=== PATIENT | male | born 1945 | race Caucasian/White ===

== ENCOUNTER 2022-03-02 19:39 | Observation (INO) ==
[2022-03-02] MEDS ORDERED: SODIUM CHLORIDE 0.9% 1,000 ML IV STA (20:01)
[2022-03-02 20:56] LABS: INR 1.4; PT Patient Result 15.6 SECS (10.5-12.0)
[2022-03-02 21:01] LABS: Alanine Aminotransferase 122 U/L (16-61); Albumin 1.8 G/DL (3.4-5.0); Alkaline Phosphatase 752 U/L (45-117); Aspartate Amino Transferase 95 U/L (0-37); Blood Urea Nitrogen 14 MG/DL (7-18); Calcium 8.2 MG/DL (8.5-10.1); Carbon Dioxide 27 MMOL/L (21-32); Chloride 102 MMOL/L (98-107); Glucose 221 MG/DL (74-106); Potassium 3.8 MMOL/L (3.5-5.1); Sodium 136 MMOL/L (136-145); Total Protein 5.3 G/DL (6.4-8.2)
[2022-03-02 21:13] LABS: Lactic Acid 2.7 MMOL/L (0.4-2.0)
[2022-03-02 21:32] LABS: Glucose,Urine (UA) 100 mg/dL (Negative); Protein,Urine 30 mg/dL (Negative); Urine Appearance Clear (Clear); Urine Color Yellow (Yellow); Urine pH 5.5 (4.5-8.0)
[2022-03-02 21:32] LABS: Ammonia < 10 UMOL/L (11-32)
[2022-03-02 21:33] LABS: Bilirubin,Urine Large mg/dL (Negative); Blood, Urine Trace mg/dL (Negative); Ketones,Urine Negative (Negative); Nitrite,Urine Negative (Negative); Urine Urobilinogen 0.2 eU/dL (<2.0)
[2022-03-02 21:35] LABS: Mucus,Urine Occasional /LPF (Occasional); RBC,Urine 7 /HPF (0-4)
[2022-03-02 22:13] LABS: Basophils % 0.1 % (0.0-0.8); Eosinophils # 0.2 10*3/uL (0.0-0.87); Eosinophils % 2.3 % (0.00-10.9); Hematocrit 29.9 VOL% (42.0-52.0); Hemoglobin 9.8 GM/DL (14.0-18.0); Immature Granulocytes Absolute 0.09 #; Lymphocytes # 0.2 10*3/uL (1.4-4.0); Lymphocytes % 2.4 % (21.2-54.2); Mean Corpuscular HGB Conc 32.8 GM/DL (32-36); Mean Corpuscular Volume 92.3 FL (87-102); Mean Platelet Volume 11.5 FL (9.6-12.0); Monocytes # 0.2 10*3/uL (0.11-0.8); Monocytes % 1.9 % (1.7-12.7); NRBC # 0.02 10*3/uL; Neutrophils % 92.3 % (38.7-73.9); Platelet Count 203 T/CUMM (130-400); Red Blood Count 3.24 MC/CUMM (3.8-5.5); Red Cell Distribution Width 15.7 % (9.3-17.3); White Blood Count 8.7 T/CUMM (4-12)
[2022-03-02 22:21] LABS: Band Neutrophils 1 % (0-10); Eosinophils 2 % (0-10); Lymphocytes 5 % (20-55); Total Cells Counted 100
[2022-03-02 22:22] LABS: Platelet Estimate Adequate
[2022-03-02] MEDS ORDERED: SODIUM CHLORIDE 0.9% 2,000 ML IV STA (22:27)
[2022-03-02] MEDS ORDERED: PIPERACILLIN/TAZOBACTAM 3,375 MG in SODIUM CHLORIDE 0.9% 100 ML IV STA (22:28)
[2022-03-02] MEDS ORDERED: ONDANSETRON 4 MG/2 ML VIAL IV PRN (22:31)
[2022-03-03] MEDS: SODIUM CHLORIDE 0.9% 1,000 ML IV SCH ×3 (01:44→14:39)
[2022-03-03 05:31] LABS: Basophils % 0.1 % (0.0-0.8); Eosinophils # 0.1 10*3/uL (0.0-0.87); Eosinophils % 0.8 % (0.00-10.9); Hematocrit 27.7 VOL% (42.0-52.0); Hemoglobin 9.1 GM/DL (14.0-18.0); Immature Granulocytes % 0.8 %; Immature Granulocytes Absolute 0.14 #; Lymphocytes # 0.5 10*3/uL (1.4-4.0); Lymphocytes % 2.9 % (21.2-54.2); Mean Corpuscular HGB Conc 32.9 GM/DL (32-36); Mean Platelet Volume 10.8 FL (9.6-12.0); Monocytes # 0.6 10*3/uL (0.11-0.8); Monocytes % 3.6 % (1.7-12.7); Neutrophils % 91.8 % (38.7-73.9); Platelet Count 226 T/CUMM (130-400); Red Blood Count 2.98 MC/CUMM (3.8-5.5); Red Cell Distribution Width 15.9 % (9.3-17.3); White Blood Count 17.3 T/CUMM (4-12)
[2022-03-03 05:44] LABS: Albumin 1.6 G/DL (3.4-5.0); Bilirubin,Total 4.9 MG/DL (0.20-1.00); Calcium 7.7 MG/DL (8.5-10.1); Osmolality,Calculated 284.5 MOS/KG (273-304); Potassium 3.6 MMOL/L (3.5-5.1); Total Protein 4.8 G/DL (6.4-8.2)
[2022-03-03 06:25] LABS: Band Neutrophils 5 % (0-10); Hypochromia Slight; Lymphocytes 3 % (20-55); Total Cells Counted 100
[2022-03-03 06:26] LABS: Microcytosis Slight; Ovalocytes Slight; Platelet Estimate Normal
[2022-03-03] MEDS ORDERED: MAGNESIUM SULF RIDER 4 GM/100 ML PREMIX IV ONE (08:30)
[2022-03-03] MEDS: RIVAROXABAN 15 MG TABLET PO SCH ×2 (10:52→16:57)
[2022-03-03] MEDS: PANTOPRAZOLE 40 MG TABLET PO SCH (10:52)
[2022-03-03] MEDS: PIPERACILLIN/TAZOBACTAM 3,375 MG in SODIUM CHLORIDE 0.9% 100 ML IV SCH ×2 (10:53→17:22)
[2022-03-03] MEDS: ACETAMINOPHEN 325 MG TABLET PO PRN ×2 (14:43→22:46)
[2022-03-04] MEDS: SODIUM CHLORIDE 0.9% 1,000 ML IV SCH ×2 (01:30→14:06)
[2022-03-04] MEDS: PIPERACILLIN/TAZOBACTAM 3,375 MG in SODIUM CHLORIDE 0.9% 100 ML IV SCH ×3 (01:36→17:07)
[2022-03-04 06:04] LABS: Basophils % 0.1 % (0.0-0.8); Eosinophils # 0.2 10*3/uL (0.0-0.87); Eosinophils % 0.9 % (0.00-10.9); Hematocrit 25.9 VOL% (42.0-52.0); Hemoglobin 8.6 GM/DL (14.0-18.0); Immature Granulocytes % 1.5 %; Immature Granulocytes Absolute 0.26 #; Lymphocytes # 0.5 10*3/uL (1.4-4.0); Lymphocytes % 2.9 % (21.2-54.2); Mean Corpuscular HGB Conc 33.2 GM/DL (32-36); Mean Corpuscular Volume 92.2 FL (87-102); Mean Platelet Volume 11.5 FL (9.6-12.0); Monocytes % 5.7 % (1.7-12.7); NRBC # 0.02 10*3/uL; Neutrophils % 88.9 % (38.7-73.9); Platelet Count 292 T/CUMM (130-400); Red Blood Count 2.81 MC/CUMM (3.8-5.5); Red Cell Distribution Width 16.4 % (9.3-17.3)
[2022-03-04 06:18] LABS: Calcium 7.9 MG/DL (8.5-10.1); Osmolality,Calculated 279.7 MOS/KG (273-304); Potassium 3.3 MMOL/L (3.5-5.1)
[2022-03-04 06:32] LABS: Anisocytosis 1+; Band Neutrophils 20 % (0-10); Giant Platelets Few; Lymphocytes 3 % (20-55); Macrocytosis 1+; Platelet Estimate Normal; Tear Drop Cells Few; Total Cells Counted 100
[2022-03-04] MEDS: PANTOPRAZOLE 40 MG TABLET PO SCH (09:15)
[2022-03-04] MEDS: RIVAROXABAN 15 MG TABLET PO SCH ×2 (09:15→16:47)
[2022-03-04 10:54] VITALS: BP 122/55
[2022-03-04] MEDS: ACETAMINOPHEN 325 MG TABLET PO PRN (16:47)
== END 2022-03-04 17:14 | disposition home or self-care (01) ==
LOC: EDUNIT# → EDBD → N.ED 19:39 → N.TELES 19:39
PROVIDERS: ADMIT Internal Medicine; ATTEND Internal Medicine

== ENCOUNTER 2022-03-17 14:21 | Inpatient (IN) ==
[2022-03-17] MEDS ORDERED: SODIUM CHLORIDE 0.9% 1,000 ML IV STA ×2 (14:55→16:19)
[2022-03-17] MEDS ORDERED: HYDROmorphone 1 MG/1 ML SYRINGE IV STA (14:55)
[2022-03-17] MEDS ORDERED: ONDANSETRON 4 MG/2 ML VIAL IV STA (14:55)
[2022-03-17 15:53] LABS: Eosinophils % 0.7 % (0.00-10.9); Hematocrit 21.8 VOL% (42.0-52.0); Hemoglobin 6.9 GM/DL (14.0-18.0); Immature Granulocytes Absolute 0.06 #; Lymphocytes # 0.6 10*3/uL (1.4-4.0); Lymphocytes % 18.6 % (21.2-54.2); Mean Corpuscular HGB Conc 31.7 GM/DL (32-36); Mean Corpuscular Volume 95.6 FL (87-102); Mean Platelet Volume 11.3 FL (9.6-12.0); Monocytes # 0.4 10*3/uL (0.11-0.8); Monocytes % 12.8 % (1.7-12.7); NRBC # 0.05 10*3/uL; Neutrophils % 65.9 % (38.7-73.9); Platelet Count 203 T/CUMM (130-400); Red Blood Count 2.28 MC/CUMM (3.8-5.5); Red Cell Distribution Width 17.5 % (9.3-17.3)
[2022-03-17] MEDS ORDERED: PIPERACILLIN/TAZOBACTAM 3,375 MG in SODIUM CHLORIDE 0.9% 100 ML IV STA (16:02)
[2022-03-17 16:17] LABS: Band Neutrophils 10 % (0-10); Lymphocytes 14 % (20-55); Nucleated Red Blood Cells 2 (0-5); Total Cells Counted 100
[2022-03-17 16:18] LABS: Platelet Estimate Adequate
[2022-03-17] MEDS ORDERED: VANCOMYCIN INJ 1,250 MG in SODIUM CHLORIDE 0.9% 250 ML IV STA (16:24)
[2022-03-17 16:27] LABS: Alanine Aminotransferase 57 U/L (16-61); Albumin 1.6 G/DL (3.4-5.0); Alkaline Phosphatase 324 U/L (45-117); Aspartate Amino Transferase 38 U/L (0-37); Blood Urea Nitrogen 20 MG/DL (7-18); Calcium 7.9 MG/DL (8.5-10.1); Carbon Dioxide 25 MMOL/L (21-32); Chloride 102 MMOL/L (98-107); Glucose 161 MG/DL (74-106); Osmolality,Calculated 271.4 MOS/KG (273-304); Potassium 4.8 MMOL/L (3.5-5.1); Sodium 133 MMOL/L (136-145); Total Protein 5.3 G/DL (6.4-8.2)
[2022-03-17] MEDS ORDERED: SODIUM CHLORIDE 0.9% 1,000 ML IV PRN (16:42)
[2022-03-17] MEDS ORDERED: GLUCAGON 1 MG VIAL IM PRN (16:42)
[2022-03-17] MEDS ORDERED: DEXTROSE 10% 250 ML BAG IV PRN (16:48)
[2022-03-17] MEDS: SODIUM CHLORIDE 0.9% 1,000 ML IV SCH (18:14)
[2022-03-17 20:05] LABS: Bacteria,Urine Occasional /HPF (Few); Mucus,Urine Occasional /LPF (Occasional); RBC,Urine 2 /HPF (0-4)
[2022-03-17 20:08] LABS: Urine Appearance Clear (Clear); Urine Color Yellow (Yellow); Urine pH 5.5 (4.5-8.0)
[2022-03-17 20:11] LABS: Glucose,Urine (UA) Negative (Negative); Ketones,Urine Negative (Negative); Nitrite,Urine Negative (Negative); Protein,Urine 30 mg/dL (Negative)
[2022-03-17 20:12] LABS: Bilirubin,Urine Negative (Negative); Blood, Urine Small mg/dL (Negative); Urine Urobilinogen 0.2 eU/dL (<2.0)
[2022-03-17 20:14] LABS: Urine Specific Gravity <= 1.005 (1.001-1.035)
[2022-03-17] MEDS: HYDROmorphone 1 MG/1 ML SYRINGE IV PRN (20:40)
[2022-03-17] MEDS: DOCUSATE SODIUM 100 MG CAPSULE PO SCH (20:50)
[2022-03-17] MEDS ORDERED: VANCOMYCIN INJ 1,250 MG in SODIUM CHLORIDE 0.9% 250 ML IV SCH (22:30)
[2022-03-18] MEDS: VANCOMYCIN INJ 1,500 MG in SODIUM CHLORIDE 0.9% 500 ML IV SCH ×2 (05:15→16:33)
[2022-03-18 07:01] LABS: Basophils % 0.5 % (0.0-0.8); Eosinophils # 0.1 10*3/uL (0.0-0.87); Eosinophils % 2.8 % (0.00-10.9); Hematocrit 29.6 VOL% (42.0-52.0); Hemoglobin 9.3 GM/DL (14.0-18.0); Immature Granulocytes % 1.6 %; Immature Granulocytes Absolute 0.07 #; Lymphocytes # 0.7 10*3/uL (1.4-4.0); Lymphocytes % 16.3 % (21.2-54.2); Mean Corpuscular HGB Conc 31.4 GM/DL (32-36); Mean Corpuscular Volume 93.7 FL (87-102); Mean Platelet Volume 10.5 FL (9.6-12.0); Monocytes # 0.7 10*3/uL (0.11-0.8); Monocytes % 15.6 % (1.7-12.7); NRBC # 0.03 10*3/uL; Neutrophils % 63.2 % (38.7-73.9); Platelet Count 190 T/CUMM (130-400); Red Blood Count 3.16 MC/CUMM (3.8-5.5); Red Cell Distribution Width 17.2 % (9.3-17.3); White Blood Count 4.3 T/CUMM (4-12)
[2022-03-18 07:23] LABS: Albumin 1.5 G/DL (3.4-5.0); Bilirubin,Total 1.4 MG/DL (0.20-1.00); Calcium 7.7 MG/DL (8.5-10.1); Osmolality,Calculated 274.1 MOS/KG (273-304); Potassium 4.4 MMOL/L (3.5-5.1)
[2022-03-18] MEDS ORDERED: predniSONE 20 MG TABLET PO PRN (08:09)
[2022-03-18 08:12] LABS: Band Neutrophils 6 % (0-10); Lymphocytes 14 % (20-55); Nucleated Red Blood Cells 1 (0-5); Total Cells Counted 100
[2022-03-18 08:14] LABS: Tear Drop Cells Few
[2022-03-18 08:15] LABS: Ovalocytes Few; Platelet Estimate Adequate
[2022-03-18] MEDS: PANTOPRAZOLE 40 MG TABLET PO SCH (08:55)
[2022-03-18] MEDS: POTASSIUM CHLORIDE 20 MEQ TABLET PO SCH (09:03)
[2022-03-18] MEDS: HYDROmorphone 1 MG/1 ML SYRINGE IV PRN ×3 (09:05→23:17)
[2022-03-18] MEDS: PIPERACILLIN/TAZOBACTAM 3,375 MG in SODIUM CHLORIDE 0.9% 100 ML IV SCH ×2 (09:09→20:18)
[2022-03-18] MEDS: DOCUSATE SODIUM 100 MG CAPSULE PO SCH ×2 (09:37→20:56)
[2022-03-18] MEDS: SODIUM CHLORIDE 0.9% 1,000 ML IV SCH ×2 (13:07→18:36)
[2022-03-18] MEDS ORDERED: methylPREDNISolone SOD SUC 125 MG/2 ML VIAL IV SCH (13:30)
[2022-03-18] MEDS: ONDANSETRON 4 MG/2 ML VIAL IV PRN (16:33)
[2022-03-18] MEDS: RIVAROXABAN 15 MG TABLET PO SCH (17:19)
[2022-03-18] MEDS: ALBUTEROL 2.5 MG/3 ML NEB RESP TX PRN (18:58)
[2022-03-18] MEDS: INSULIN LISPRO 100 UNIT/ML SUBCUT SCH (21:42)
[2022-03-19] MEDS: SODIUM CHLORIDE 0.9% 1,000 ML IV SCH (02:11)
[2022-03-19] MEDS: PIPERACILLIN/TAZOBACTAM 3,375 MG in SODIUM CHLORIDE 0.9% 100 ML IV SCH ×2 (03:57→12:54)
[2022-03-19] MEDS: ALBUTEROL 2.5 MG/3 ML NEB RESP TX PRN ×2 (04:16→15:15)
[2022-03-19 05:52] LABS: Basophils % 0.5 % (0.0-0.8); Eosinophils # 0.2 10*3/uL (0.0-0.87); Eosinophils % 2.3 % (0.00-10.9); Hematocrit 28.9 VOL% (42.0-52.0); Hemoglobin 9.2 GM/DL (14.0-18.0); Immature Granulocytes % 4.3 %; Immature Granulocytes Absolute 0.28 #; Lymphocytes # 0.8 10*3/uL (1.4-4.0); Lymphocytes % 11.8 % (21.2-54.2); Mean Corpuscular HGB Conc 31.8 GM/DL (32-36); Mean Corpuscular Volume 94.8 FL (87-102); Mean Platelet Volume 10.8 FL (9.6-12.0); NRBC # 0.03 10*3/uL; Neutrophils % 66.1 % (38.7-73.9); Platelet Count 234 T/CUMM (130-400); Red Blood Count 3.05 MC/CUMM (3.8-5.5); Red Cell Distribution Width 17.2 % (9.3-17.3); White Blood Count 6.5 T/CUMM (4-12)
[2022-03-19 07:47] LABS: Band Neutrophils 1 % (0-10); Eosinophils 4 % (0-10); Lymphocytes 12 % (20-55); Metamyelocytes 1 %; Total Cells Counted 100
[2022-03-19 07:50] LABS: Anisocytosis Slight
[2022-03-19 07:51] LABS: Platelet Estimate Normal
[2022-03-19] MEDS: PANTOPRAZOLE 40 MG TABLET PO SCH (09:09)
[2022-03-19] MEDS: POTASSIUM CHLORIDE 20 MEQ TABLET PO SCH (09:09)
[2022-03-19] MEDS: RIVAROXABAN 15 MG TABLET PO SCH ×2 (09:10→17:32)
[2022-03-19] MEDS: INSULIN LISPRO 100 UNIT/ML SUBCUT SCH ×4 (09:11→20:31)
[2022-03-19] MEDS: HYDROmorphone 1 MG/1 ML SYRINGE IV PRN ×3 (09:12→21:12)
[2022-03-19] MEDS: DOCUSATE SODIUM 100 MG CAPSULE PO SCH ×2 (09:13→21:13)
[2022-03-19] MEDS: SODIUM CHLORIDE 0.45% 1,000 ML IV SCH (09:26)
[2022-03-19] MEDS ORDERED: FUROSEMIDE 20 MG/2 ML VIAL IV ONE (12:48)
[2022-03-19] MEDS: VANCOMYCIN INJ 1,500 MG in SODIUM CHLORIDE 0.9% 500 ML IV SCH ×3 (17:32→18:03)
[2022-03-20] MEDS: ALBUTEROL 2.5 MG/3 ML NEB RESP TX PRN (00:55)
[2022-03-20 05:15] LABS: Basophils % 0.2 % (0.0-0.8); Eosinophils # 0.2 10*3/uL (0.0-0.87); Eosinophils % 2.2 % (0.00-10.9); Hematocrit 28.5 VOL% (42.0-52.0); Immature Granulocytes Absolute 0.39 #; Lymphocytes # 0.8 10*3/uL (1.4-4.0); Lymphocytes % 8.2 % (21.2-54.2); Mean Corpuscular HGB Conc 31.6 GM/DL (32-36); Mean Corpuscular Volume 93.8 FL (87-102); Mean Platelet Volume 10.7 FL (9.6-12.0); Monocytes # 1.4 10*3/uL (0.11-0.8); Monocytes % 14.6 % (1.7-12.7); NRBC # 0.02 10*3/uL; Neutrophils % 70.8 % (38.7-73.9); Platelet Count 257 T/CUMM (130-400); Red Blood Count 3.04 MC/CUMM (3.8-5.5); Red Cell Distribution Width 17.1 % (9.3-17.3); White Blood Count 9.8 T/CUMM (4-12)
[2022-03-20 05:36] LABS: Eosinophils 5 % (0-10); Lymphocytes 5 % (20-55); Platelet Estimate Adequate; Total Cells Counted 100
[2022-03-20 05:39] LABS: Albumin 1.3 G/DL (3.4-5.0); Bilirubin,Total 1.2 MG/DL (0.20-1.00); Calcium 7.7 MG/DL (8.5-10.1); Potassium 3.8 MMOL/L (3.5-5.1); Total Protein 5.1 G/DL (6.4-8.2)
[2022-03-20] MEDS ORDERED: DEXTROMETHORPHAN ER 6 MG/ML 90 ML/BOTTLE PO PRN (08:14)
[2022-03-20] MEDS: POTASSIUM CHLORIDE 20 MEQ TABLET PO SCH (09:11)
[2022-03-20] MEDS: RIVAROXABAN 15 MG TABLET PO SCH ×2 (09:11→17:44)
[2022-03-20] MEDS: DOCUSATE SODIUM 100 MG CAPSULE PO SCH ×2 (09:11→21:01)
[2022-03-20] MEDS: PANTOPRAZOLE 40 MG TABLET PO SCH (09:11)
[2022-03-20] MEDS: SODIUM CHLORIDE 0.45% 1,000 ML IV SCH (09:12)
[2022-03-20] MEDS: PIPERACILLIN/TAZOBACTAM 3,375 MG in SODIUM CHLORIDE 0.9% 100 ML IV SCH ×2 (09:17→17:43)
[2022-03-20] MEDS: INSULIN LISPRO 100 UNIT/ML SUBCUT SCH ×4 (11:19→21:02)
[2022-03-20] MEDS: ONDANSETRON 4 MG/2 ML VIAL IV PRN ×2 (11:40→20:54)
[2022-03-20] MEDS ORDERED: VANCOMYCIN INJ 1,500 MG in SODIUM CHLORIDE 0.9% 500 ML IV SCH (17:00)
[2022-03-20] MEDS: VANCOMYCIN INJ 1,500 MG in SODIUM CHLORIDE 0.9% 500 ML IV SCH (17:45)
[2022-03-21] MEDS: PIPERACILLIN/TAZOBACTAM 3,375 MG in SODIUM CHLORIDE 0.9% 100 ML IV SCH ×4 (00:09→23:32)
[2022-03-21] MEDS: ONDANSETRON 4 MG/2 ML VIAL IV PRN ×4 (02:38→22:35)
[2022-03-21] MEDS: SODIUM CHLORIDE 0.45% 1,000 ML IV SCH ×2 (03:27→20:39)
[2022-03-21 05:43] LABS: Basophils % 0.3 % (0.0-0.8); Eosinophils # 0.5 10*3/uL (0.0-0.87); Eosinophils % 3.7 % (0.00-10.9); Hematocrit 29.8 VOL% (42.0-52.0); Hemoglobin 9.2 GM/DL (14.0-18.0); Immature Granulocytes % 5.4 %; Immature Granulocytes Absolute 0.75 #; Lymphocytes # 0.8 10*3/uL (1.4-4.0); Lymphocytes % 5.8 % (21.2-54.2); Mean Corpuscular HGB Conc 30.9 GM/DL (32-36); Mean Corpuscular Volume 96.4 FL (87-102); Mean Platelet Volume 10.8 FL (9.6-12.0); Monocytes # 2.2 10*3/uL (0.11-0.8); Monocytes % 15.5 % (1.7-12.7); Neutrophils % 69.3 % (38.7-73.9); Platelet Count 277 T/CUMM (130-400); Red Blood Count 3.09 MC/CUMM (3.8-5.5); Red Cell Distribution Width 17.1 % (9.3-17.3)
[2022-03-21 05:49] LABS: Albumin 1.3 G/DL (3.4-5.0); Calcium 7.5 MG/DL (8.5-10.1); Osmolality,Calculated 271.1 MOS/KG (273-304); Potassium 3.9 MMOL/L (3.5-5.1); Total Protein 5.3 G/DL (6.4-8.2)
[2022-03-21 06:04] LABS: Band Neutrophils 4 % (0-10); Eosinophils 7 % (0-10); Hypochromia 1+; Lymphocytes 6 % (20-55); Total Cells Counted 100
[2022-03-21 06:05] LABS: Anisocytosis 1+; Macrocytosis 1+; Platelet Estimate Normal
[2022-03-21] MEDS: RIVAROXABAN 15 MG TABLET PO SCH ×2 (08:50→17:24)
[2022-03-21] MEDS: INSULIN LISPRO 100 UNIT/ML SUBCUT SCH ×4 (08:58→20:37)
[2022-03-21] MEDS: POTASSIUM CHLORIDE 20 MEQ TABLET PO SCH (13:01)
[2022-03-21] MEDS: PANTOPRAZOLE 40 MG TABLET PO SCH (13:03)
[2022-03-21] MEDS: DOCUSATE SODIUM 100 MG CAPSULE PO SCH ×2 (13:04→20:40)
[2022-03-21] MEDS: VANCOMYCIN INJ 1,500 MG in SODIUM CHLORIDE 0.9% 500 ML IV SCH (16:50)
[2022-03-21] MEDS: ALBUTEROL 2.5 MG/3 ML NEB RESP TX PRN (20:06)
[2022-03-22 05:27] LABS: Basophils % 0.3 % (0.0-0.8); Eosinophils # 0.5 10*3/uL (0.0-0.87); Eosinophils % 4.1 % (0.00-10.9); Hemoglobin 8.6 GM/DL (14.0-18.0); Immature Granulocytes % 6.7 %; Immature Granulocytes Absolute 0.89 #; Lymphocytes # 0.9 10*3/uL (1.4-4.0); Lymphocytes % 6.5 % (21.2-54.2); Mean Corpuscular HGB Conc 30.7 GM/DL (32-36); Mean Corpuscular Volume 95.6 FL (87-102); Mean Platelet Volume 10.2 FL (9.6-12.0); Monocytes # 1.8 10*3/uL (0.11-0.8); Monocytes % 13.8 % (1.7-12.7); Neutrophils % 68.6 % (38.7-73.9); Platelet Count 302 T/CUMM (130-400); Red Blood Count 2.93 MC/CUMM (3.8-5.5); Red Cell Distribution Width 16.9 % (9.3-17.3); White Blood Count 13.3 T/CUMM (4-12)
[2022-03-22 05:35] LABS: Albumin 1.2 G/DL (3.4-5.0); Bilirubin,Total 0.9 MG/DL (0.20-1.00); Calcium 7.3 MG/DL (8.5-10.1); Osmolality,Calculated 275.7 MOS/KG (273-304); Total Protein 5.1 G/DL (6.4-8.2)
[2022-03-22 05:56] LABS: Eosinophils 6 % (0-10); Hypochromia Slight; Lymphocytes 4 % (20-55); Platelet Estimate Adequate; Total Cells Counted 100
[2022-03-22] MEDS: HYDROmorphone 1 MG/1 ML SYRINGE IV PRN ×2 (08:17→18:42)
[2022-03-22] MEDS: PANTOPRAZOLE 40 MG TABLET PO SCH (08:17)
[2022-03-22] MEDS: RIVAROXABAN 15 MG TABLET PO SCH ×2 (08:17→17:48)
[2022-03-22] MEDS: PIPERACILLIN/TAZOBACTAM 3,375 MG in SODIUM CHLORIDE 0.9% 100 ML IV SCH ×3 (08:18→23:32)
[2022-03-22] MEDS: INSULIN LISPRO 100 UNIT/ML SUBCUT SCH ×4 (08:18→21:56)
[2022-03-22] MEDS: POTASSIUM CHLORIDE 20 MEQ TABLET PO SCH (08:26)
[2022-03-22] MEDS: DOCUSATE SODIUM 100 MG CAPSULE PO SCH ×2 (10:06→20:40)
[2022-03-22] MEDS: ONDANSETRON 4 MG/2 ML VIAL IV PRN (11:23)
[2022-03-22] MEDS: ALUMINUM/MAGNES/SIMETH MAX STR 30 ML UDCUP PO PRN (16:55)
[2022-03-22] MEDS: SODIUM CHLORIDE 0.45% 1,000 ML IV SCH (18:02)
[2022-03-22] MEDS: ACETAMINOPHEN 325 MG TABLET PO PRN (18:56)
[2022-03-23 04:45] LABS: Basophils % 0.3 % (0.0-0.8); Eosinophils # 0.8 10*3/uL (0.0-0.87); Hematocrit 31.1 VOL% (42.0-52.0); Hemoglobin 9.7 GM/DL (14.0-18.0); Immature Granulocytes % 6.9 %; Immature Granulocytes Absolute 1.09 #; Lymphocytes # 0.9 10*3/uL (1.4-4.0); Lymphocytes % 5.8 % (21.2-54.2); Mean Corpuscular HGB Conc 31.2 GM/DL (32-36); Mean Corpuscular Volume 95.1 FL (87-102); Mean Platelet Volume 10.1 FL (9.6-12.0); Monocytes # 1.8 10*3/uL (0.11-0.8); Monocytes % 11.6 % (1.7-12.7); Neutrophils % 70.4 % (38.7-73.9); Platelet Count 396 T/CUMM (130-400); Red Blood Count 3.27 MC/CUMM (3.8-5.5); Red Cell Distribution Width 16.9 % (9.3-17.3); White Blood Count 15.8 T/CUMM (4-12)
[2022-03-23 05:08] LABS: Band Neutrophils 1 % (0-10); Eosinophils 4 % (0-10); Lymphocytes 7 % (20-55); Total Cells Counted 100
[2022-03-23 05:09] LABS: Macrocytosis 1+
[2022-03-23 05:12] LABS: Albumin 1.4 G/DL (3.4-5.0); Calcium 7.8 MG/DL (8.5-10.1); Osmolality,Calculated 272.8 MOS/KG (273-304); Potassium 3.7 MMOL/L (3.5-5.1); Total Protein 5.8 G/DL (6.4-8.2)
[2022-03-23] MEDS ORDERED: FUROSEMIDE 40 MG/4 ML VIAL IV ONE (08:16)
[2022-03-23] MEDS: PANTOPRAZOLE 40 MG TABLET PO SCH (09:12)
[2022-03-23] MEDS: POTASSIUM CHLORIDE 20 MEQ TABLET PO SCH (09:12)
[2022-03-23] MEDS: RIVAROXABAN 15 MG TABLET PO SCH ×2 (09:12→16:45)
[2022-03-23] MEDS: HYDROmorphone 1 MG/1 ML SYRINGE IV PRN ×2 (09:13→16:45)
[2022-03-23] MEDS: PIPERACILLIN/TAZOBACTAM 3,375 MG in SODIUM CHLORIDE 0.9% 100 ML IV SCH ×2 (09:13→16:47)
[2022-03-23] MEDS: INSULIN LISPRO 100 UNIT/ML SUBCUT SCH ×4 (09:14→22:05)
[2022-03-23] MEDS: DOCUSATE SODIUM 100 MG CAPSULE PO SCH ×2 (09:44→22:05)
[2022-03-23] MEDS: ONDANSETRON 4 MG/2 ML VIAL IV PRN (13:45)
[2022-03-23] MEDS: ALBUTEROL 2.5 MG/3 ML NEB RESP TX PRN (14:13)
[2022-03-23 14:55] LABS: Calcium 8.2 MG/DL (8.5-10.1); Osmolality,Calculated 268.4 MOS/KG (273-304); Potassium 4.2 MMOL/L (3.5-5.1)
[2022-03-23 16:19] LABS: Bilirubin,Urine Negative (Negative); Blood, Urine Trace mg/dL (Negative); Glucose,Urine (UA) Negative (Negative); Ketones,Urine Negative (Negative); Mucus,Urine Occasional /LPF (Occasional); Nitrite,Urine Negative (Negative); Protein,Urine Negative (Negative); RBC,Urine 1 /HPF (0-4); Urine Appearance Clear (Clear); Urine Color Yellow (Yellow); Urine Urobilinogen 0.2 eU/dL (<2.0); Urine pH 5.5 (4.5-8.0)
[2022-03-23] MEDS: ACETAMINOPHEN 325 MG TABLET PO PRN (16:45)
[2022-03-23] MEDS: SODIUM CHLORIDE 0.45% 1,000 ML IV SCH (16:55)
[2022-03-23] MEDS ORDERED: VANCOMYCIN INJ 1,500 MG in SODIUM CHLORIDE 0.9% 500 ML IV SCH (18:00)
[2022-03-24] MEDS: PIPERACILLIN/TAZOBACTAM 3,375 MG in SODIUM CHLORIDE 0.9% 100 ML IV SCH (03:05)
[2022-03-24 05:33] LABS: Basophils # 0.1 10*3/uL (0.0-0.2); Basophils % 0.4 % (0.0-0.8); Eosinophils # 0.4 10*3/uL (0.0-0.87); Eosinophils % 2.8 % (0.00-10.9); Hematocrit 26.6 VOL% (42.0-52.0); Hemoglobin 8.3 GM/DL (14.0-18.0); Immature Granulocytes % 4.9 %; Immature Granulocytes Absolute 0.73 #; Lymphocytes % 6.9 % (21.2-54.2); Mean Corpuscular HGB Conc 31.2 GM/DL (32-36); Mean Corpuscular Volume 95.7 FL (87-102); Mean Platelet Volume 9.9 FL (9.6-12.0); Monocytes # 1.4 10*3/uL (0.11-0.8); Monocytes % 9.1 % (1.7-12.7); Neutrophils % 75.9 % (38.7-73.9); Platelet Count 320 T/CUMM (130-400); Red Blood Count 2.78 MC/CUMM (3.8-5.5); Red Cell Distribution Width 16.7 % (9.3-17.3); White Blood Count 14.9 T/CUMM (4-12)
[2022-03-24 05:50] LABS: Albumin 1.3 G/DL (3.4-5.0); Bilirubin,Total 0.8 MG/DL (0.20-1.00); Calcium 7.6 MG/DL (8.5-10.1); Osmolality,Calculated 275.7 MOS/KG (273-304); Osmolality,Calculated 279.4 MOS/KG (273-304); Potassium 3.5 MMOL/L (3.5-5.1); Total Protein 5.2 G/DL (6.4-8.2)
[2022-03-24 05:51] LABS: Albumin 1.3 G/DL (3.4-5.0); Bilirubin,Direct 0.55 MG/DL (0.0-0.20); Bilirubin,Indirect 0.4 MG/DL (0.0-1.0); Bilirubin,Total 0.9 MG/DL (0.20-1.00); Total Protein 4.8 G/DL (6.4-8.2)
[2022-03-24 06:20] LABS: Eosinophils 1 % (0-10); Lymphocytes 3 % (20-55); Total Cells Counted 100
[2022-03-24 06:21] LABS: Platelet Estimate Adequate
[2022-03-24] MEDS: POTASSIUM CHLORIDE 20 MEQ TABLET PO SCH (09:00)
[2022-03-24] MEDS: PANTOPRAZOLE 40 MG TABLET PO SCH (09:00)
[2022-03-24] MEDS: INSULIN LISPRO 100 UNIT/ML SUBCUT SCH ×4 (10:21→21:20)
[2022-03-24] MEDS: DOCUSATE SODIUM 100 MG CAPSULE PO SCH (10:22)
[2022-03-24] MEDS: AMPICILLIN/SULBACTAM 3,000 MG in SODIUM CHLORIDE 0.9% 100 ML IV SCH ×2 (13:30→16:38)
[2022-03-24] MEDS: VANCOMYCIN 125 MG CAPSULE PO SCH ×3 (13:30→21:20)
[2022-03-24] MEDS: RIVAROXABAN 15 MG TABLET PO SCH (13:56)
[2022-03-24] MEDS: SODIUM CHLORIDE 0.45% 1,000 ML IV SCH (13:57)
[2022-03-24] MEDS: HYDROmorphone 1 MG/1 ML SYRINGE IV PRN ×2 (16:38→23:40)
[2022-03-24] MEDS: ALUMINUM/MAGNES/SIMETH MAX STR 30 ML UDCUP PO PRN ×2 (16:39→21:20)
[2022-03-24] MEDS: HEPARIN DRIP 25,000 UNITS/500 ML PREMIX IV SCH (18:42)
[2022-03-24] MEDS ORDERED: HEPARIN 5,000 UNIT/1 ML VIAL IV ONE (19:30)
[2022-03-25] MEDS: DOCUSATE SODIUM 100 MG CAPSULE PO SCH ×3 (00:20→20:24)
[2022-03-25] MEDS: SODIUM CHLORIDE 0.45% 1,000 ML IV SCH ×2 (00:21→06:12)
[2022-03-25] MEDS: AMPICILLIN/SULBACTAM 3,000 MG in SODIUM CHLORIDE 0.9% 100 ML IV SCH ×3 (00:50→17:01)
[2022-03-25 04:26] LABS: Basophils # 0.1 10*3/uL (0.0-0.2); Basophils % 0.3 % (0.0-0.8); Eosinophils # 0.3 10*3/uL (0.0-0.87); Eosinophils % 1.1 % (0.00-10.9); Hematocrit 28.3 VOL% (42.0-52.0); Hemoglobin 8.9 GM/DL (14.0-18.0); Immature Granulocytes % 2.2 %; Immature Granulocytes Absolute 0.57 #; Lymphocytes # 0.6 10*3/uL (1.4-4.0); Lymphocytes % 2.4 % (21.2-54.2); Mean Corpuscular HGB Conc 31.4 GM/DL (32-36); Mean Platelet Volume 9.5 FL (9.6-12.0); Monocytes # 0.4 10*3/uL (0.11-0.8); Monocytes % 1.7 % (1.7-12.7); Neutrophils % 92.3 % (38.7-73.9); Platelet Count 370 T/CUMM (130-400); Red Blood Count 2.98 MC/CUMM (3.8-5.5); Red Cell Distribution Width 16.9 % (9.3-17.3); White Blood Count 25.5 T/CUMM (4-12)
[2022-03-25 04:44] LABS: Albumin 1.3 G/DL (3.4-5.0); Bilirubin,Total 0.9 MG/DL (0.20-1.00); Calcium 7.5 MG/DL (8.5-10.1); Osmolality,Calculated 274.7 MOS/KG (273-304); Potassium 3.1 MMOL/L (3.5-5.1); Total Protein 5.3 G/DL (6.4-8.2)
[2022-03-25 04:56] LABS: Band Neutrophils 1 % (0-10); Eosinophils 2 % (0-10); Lymphocytes 1 % (20-55); Platelet Estimate Adequate; Total Cells Counted 100
[2022-03-25] MEDS: VANCOMYCIN 125 MG CAPSULE PO SCH ×4 (05:12→21:14)
[2022-03-25] MEDS: ONDANSETRON 4 MG/2 ML VIAL IV PRN ×2 (05:48→21:13)
[2022-03-25] MEDS: INSULIN LISPRO 100 UNIT/ML SUBCUT SCH ×4 (07:30→20:49)
[2022-03-25] MEDS: PANTOPRAZOLE 40 MG TABLET PO SCH (09:15)
[2022-03-25] MEDS: POTASSIUM CHLORIDE 20 MEQ TABLET PO SCH (09:15)
[2022-03-25] MEDS: HEPARIN DRIP 25,000 UNITS/500 ML PREMIX IV SCH ×2 (11:30→14:30)
[2022-03-25] MEDS: ALUMINUM/MAGNES/SIMETH MAX STR 30 ML UDCUP PO PRN ×2 (12:58→21:13)
[2022-03-25] MEDS ORDERED: POTASSIUM CHLORIDE 20 MEQ TABLET PO ONE (15:00)
[2022-03-25] MEDS: HYDROmorphone 1 MG/1 ML SYRINGE IV PRN (21:14)
[2022-03-26] MEDS: SODIUM CHLORIDE 0.45% 1,000 ML IV SCH ×3 (00:39→21:10)
[2022-03-26] MEDS: AMPICILLIN/SULBACTAM 3,000 MG in SODIUM CHLORIDE 0.9% 100 ML IV SCH ×3 (01:15→16:40)
[2022-03-26] MEDS: VANCOMYCIN 125 MG CAPSULE PO SCH ×4 (04:01→21:10)
[2022-03-26 05:15] LABS: Basophils % 0.2 % (0.0-0.8); Eosinophils # 0.4 10*3/uL (0.0-0.87); Eosinophils % 2.2 % (0.00-10.9); Hematocrit 30.9 VOL% (42.0-52.0); Hemoglobin 9.5 GM/DL (14.0-18.0); Immature Granulocytes % 2.3 %; Immature Granulocytes Absolute 0.47 #; Lymphocytes # 0.8 10*3/uL (1.4-4.0); Lymphocytes % 3.8 % (21.2-54.2); Mean Corpuscular HGB Conc 30.7 GM/DL (32-36); Mean Corpuscular Volume 96.6 FL (87-102); Monocytes # 0.1 10*3/uL (0.11-0.8); Monocytes % 0.5 % (1.7-12.7); Platelet Count 421 T/CUMM (130-400); Red Cell Distribution Width 16.9 % (9.3-17.3); White Blood Count 20.4 T/CUMM (4-12)
[2022-03-26 05:31] LABS: Calcium 7.6 MG/DL (8.5-10.1); Osmolality,Calculated 276.5 MOS/KG (273-304); Potassium 3.6 MMOL/L (3.5-5.1)
[2022-03-26 05:43] LABS: Eosinophils 2 % (0-10); Lymphocytes 2 % (20-55); Platelet Estimate Adequate; Total Cells Counted 100
[2022-03-26] MEDS: PANTOPRAZOLE 40 MG TABLET PO SCH (08:36)
[2022-03-26] MEDS: DOCUSATE SODIUM 100 MG CAPSULE PO SCH ×2 (08:36→21:12)
[2022-03-26] MEDS: POTASSIUM CHLORIDE 20 MEQ TABLET PO SCH (08:36)
[2022-03-26] MEDS: HEPARIN DRIP 25,000 UNITS/500 ML PREMIX IV SCH ×2 (08:40→17:27)
[2022-03-26] MEDS: INSULIN LISPRO 100 UNIT/ML SUBCUT SCH ×4 (10:35→21:10)
[2022-03-26] MEDS: HYDROmorphone 1 MG/1 ML SYRINGE IV PRN ×2 (12:40→21:11)
[2022-03-26] MEDS: ONDANSETRON 4 MG/2 ML VIAL IV PRN (16:50)
[2022-03-27] MEDS: AMPICILLIN/SULBACTAM 3,000 MG in SODIUM CHLORIDE 0.9% 100 ML IV SCH ×2 (00:58→09:23)
[2022-03-27] MEDS: VANCOMYCIN 125 MG CAPSULE PO SCH ×3 (04:55→16:16)
[2022-03-27] MEDS: ONDANSETRON 4 MG/2 ML VIAL IV PRN (04:57)
[2022-03-27 07:42] LABS: INR 1.1; PT Patient Result 12.4 SECS (10.5-12.0)
[2022-03-27] MEDS: HEPARIN DRIP 25,000 UNITS/500 ML PREMIX IV SCH (08:13)
[2022-03-27] MEDS: INSULIN LISPRO 100 UNIT/ML SUBCUT SCH ×3 (08:34→16:43)
[2022-03-27] MEDS: DOCUSATE SODIUM 100 MG CAPSULE PO SCH (09:19)
[2022-03-27] MEDS: POTASSIUM CHLORIDE 20 MEQ TABLET PO SCH (09:21)
[2022-03-27] MEDS: PANTOPRAZOLE 40 MG TABLET PO SCH (09:21)
[2022-03-27] MEDS ORDERED: DIAZEPAM 5 MG TABLET PO ONE (10:01)
[2022-03-27] MEDS ORDERED: MIDAZOLAM 2 MG/2 ML VIAL IV ONE (10:01)
[2022-03-27] MEDS ORDERED: SODIUM CHLORIDE 0.45% 1,000 ML IV SCH (10:30)
[2022-03-27 11:03] LABS: Basophils # 0.1 10*3/uL (0.0-0.2); Basophils % 0.3 % (0.0-0.8); Eosinophils # 0.3 10*3/uL (0.0-0.87); Eosinophils % 1.4 % (0.00-10.9); Hematocrit 28.4 VOL% (42.0-52.0); Hemoglobin 8.9 GM/DL (14.0-18.0); Immature Granulocytes % 1.9 %; Immature Granulocytes Absolute 0.36 #; Lymphocytes # 1.6 10*3/uL (1.4-4.0); Lymphocytes % 8.7 % (21.2-54.2); Mean Corpuscular HGB Conc 31.3 GM/DL (32-36); Mean Corpuscular Volume 94.4 FL (87-102); Mean Platelet Volume 9.8 FL (9.6-12.0); Monocytes # 1.3 10*3/uL (0.11-0.8); Monocytes % 6.7 % (1.7-12.7); Platelet Count 366 T/CUMM (130-400); Red Blood Count 3.01 MC/CUMM (3.8-5.5); Red Cell Distribution Width 17.2 % (9.3-17.3); White Blood Count 18.7 T/CUMM (4-12)
[2022-03-27 11:12] LABS: INR 1.1; PT Patient Result 12.3 SECS (10.5-12.0)
[2022-03-27] MEDS: HYDROmorphone 1 MG/1 ML SYRINGE IV PRN ×2 (11:25→16:20)
[2022-03-27 16:25] VITALS: BP 124/89
[2022-03-27] MEDS ORDERED: HEPARIN 5,000 UNIT/1 ML VIAL IV PRN (17:40)
[2022-03-27] MEDS ORDERED: HEPARIN LOCK FLUSH 500 UNIT/5 ML SYRINGE IV ONE (17:46)
== END 2022-03-27 17:58 | disposition home health service (06) | DRG 435 ==
LOC: N.ED 14:21 → N.EDINP 16:42 → N.TELES 17:38
PROVIDERS: ADMIT Internal Medicine; ATTEND Internal Medicine